=== PATIENT | female | born 1995 | race African-American/Black ===

== ENCOUNTER 2017-06-07 05:23 | Inpatient (IN) | payer OTHER ==
[~2017-06-07] VITALS: Ht 177.8 cm; Wt 109.8 kg
[2017-06-07] MEDS ORDERED: CITRIC ACID/SODIUM CITRATE 30 ML SOLUTION. PO PRN (05:30)
[2017-06-07] MEDS ORDERED: 0.9 % SODIUM CHLORIDE 10 ML DISP.SYRIN. IV PRN (05:30)
[2017-06-07] MEDS ORDERED: TERBUTALINE 1 MG/ML VIAL. SQ PRN (05:30)
[2017-06-07] MEDS ORDERED: BUTORPHANOL 2 MG/ML VIAL. IV PRN ×2 (05:30)
[2017-06-07] MEDS ORDERED: IBUPROFEN 600 MG TABLET. PO PRN (05:30)
[2017-06-07] MEDS ORDERED: LIDOCAINE 1% PF 30 ML VIAL. INJ PRN (05:30)
[2017-06-07] MEDS ORDERED: MAG HYDROX/ALUMINUM HYD/SIMETH 30 ML ORAL.SUSP PO PRN (05:30)
[2017-06-07] MEDS ORDERED: OXYTOCIN 30 UNIT/500 ML PREMIX 500 ML IV PRN ×2 (05:30)
[2017-06-07] MEDS ORDERED: ONDANSETRON PF 4 MG/2 ML VIAL. IV PRN (05:30)
[2017-06-07] MEDS ORDERED: AMPICILLIN SODIUM 2 GM in IV NORMAL SALINE 100ML 100 ML IV ONE (06:00)
[2017-06-07] MEDS: IV RINGERS,LACTATED 1000ML 1,000 ML IV SCH ×4 (06:33→22:43)
[2017-06-07 06:59] LABS: HEMATOCRIT 34.3 % (36.0-47.0); HEMOGLOBIN 11.4 g/dL (12.0-15.5); RED BLOOD COUNT 3.7 x10^6/uL (3.50-5.40); RED CELL DISTRIBUTION WIDTH 13.3 % (11.5-14.5); WHITE BLOOD COUNT 13.5 x10^3/uL (4.0-11.0)
[2017-06-07 07:17] VITALS: BP 119/73
[2017-06-07] MEDS: AMPICILLIN SODIUM 1 GM in IV NORMAL SALINE 50ML 50 ML IV SCH ×3 (09:57→22:43)
[2017-06-07] MEDS ORDERED: fentaNYL PF VIAL 100 MCG/2 ML VIAL IV PRN (15:45)
[2017-06-07] MEDS ORDERED: fentaNYL PF VIAL 100 MCG/2 ML VIAL ONE (15:49)
[2017-06-07] MEDS ORDERED: ROPIVacaine 0.2% IN 0.9%NACL PF 40 MG/20 ML DISP.SYRIN. ONE (18:00)
[2017-06-07] MEDS ORDERED: L&D EPIDURAL CASSETTE 100 ML EP ONE (18:00)
[2017-06-07] MEDS ORDERED: L&D EPIDURAL CASSETTE 100 ML PUMP.RESVR. EP ONE (18:00)
--- NOTE | 2017-06-08 00:13 | PDOC1 ---
OB - History Hx of Present Care: Good Care Ultrasounds: Normal mid trimester US Obstetrical Complications: None Medical Complications: None Past Family/Social History * Past Medical, Surgical, Family and Obstetric Histories reviewed from chart. Rubella: Immune RPR/VDRL: Negative GBS Status: Negative HBsAG: Negative OB - Chief Complaint & HPI Date of Admission: Date of Admission: Jun 07, 2017 at 05:23 Chief Complaint/History : 1 Para: 0 EGA: 39 Reason for admission: induction of labor Indication for induction: maternal discomfort Admission Nurse Assessment Rev: Yes Problems: OB - Admission Exam Physical Exam Vitals: VS - Last 72 Hours, by Label Date Time Temp Pulse Resp B/P (MAP) Pulse Ox O2 Delivery O2 Flow Rate FiO2 06/07/17 15:53 20 06/07/17 07:17 98.9 100 20 119/73 (88) 98.9 HEENT: Normal Heart: Regular Rate Lungs: Clear Abdomen: Gravid, Non tender, Soft Extremities: Edema Reflexes: Normal Cervical Dilatation: 2cm Effacement: 50% Station: -3 Membranes: Intact Heart Rate: Normal Accelerations: Accelerations Present Decelerations: No decelerations Contractions on Admission: None Text A: 39 wks IUP IOL discomforts of P: Admit for pitocin induction. AXEL DURAN Jr, MD Jun 08, 2017 00:13
--- NOTE | 2017-06-08 00:14 | PDOC ---
VAGINAL DELIVERY DATE DATE: 06/08/17 TIME: 00:13 : 1 Para: 1 EGA: 39 VAGINAL DELIVERY: VTX VACCUM ASSISTED: No PLACENTA: Spontaneous 8/9 SEX: Female WEIGHT Weight [3085 gm ] Nuchal Cord: Yes, Times 1 Amniotic Fluid: Clear PAIN: Epidural EPISIOTOMY: No EXTENSION: No EBL 300 ml COMPLICATIONS none CONDITION pt. stable Signs of Intrauterine Infectio: None Shoulder Dystocia: No Problems: AXEL DURAN Jr, MD Jun 08, 2017 00:14
[2017-06-08] MEDS ORDERED: oxyCODONE/APAP 5/325 1 TAB TABLET PO PRN (00:15)
[2017-06-08] MEDS ORDERED: OXYTOCIN 30 UNIT/500 ML PREMIX 500 ML IV PRN (00:15)
[2017-06-08] MEDS ORDERED: PHENYLEPH/MINERAL OIL/PETROLAT RECTAL OINTMENT 28GM TUBE. RC PRN (00:15)
[2017-06-08] MEDS ORDERED: ZOLPIDEM 5 MG TABLET. PO PRN (00:15)
[2017-06-08] MEDS ORDERED: BENZOCAINE 20% TOPICAL AEROSOL SPRAY 57GM CAN. TP PRN (00:15)
[2017-06-08] MEDS ORDERED: MMR per PROTOCOL. MC PRN (00:15)
[2017-06-08] MEDS ORDERED: SIMETHICONE 80 MG TAB.CHEW PO PRN (00:15)
[2017-06-08] MEDS ORDERED: HYDROCORTISONE 1% TOPICAL OINTMENT 30GM TUBE. TP PRN (00:15)
[2017-06-08] MEDS ORDERED: diphenhydrAMINE HCL 25 MG CAPSULE PO PRN (00:15)
[2017-06-08] MEDS ORDERED: MAG HYDROX/ALUMINUM HYD/SIMETH 30 ML ORAL.SUSP PO PRN (00:15)
[2017-06-08] MEDS ORDERED: ACETAMINOPHEN 325 MG TABLET. PO PRN (00:15)
[2017-06-08] MEDS ORDERED: 0.9 % SODIUM CHLORIDE 10 ML DISP.SYRIN. IV PRN (00:15)
[2017-06-08] MEDS ORDERED: MAGNESIUM HYDROXIDE 2,400 MG/30 ML ORAL.SUSP. PO PRN (00:15)
[2017-06-08 02:25] VITALS: BP 103/52
[2017-06-08 03:45] VITALS: BP 95/51
[2017-06-08 07:30] LABS: RPR REFLEX Non Reactive (Non Reactive)
--- NOTE | 2017-06-08 07:53 | PDOC ---
Provider Note Provider Note Doing well VSS uterus NTTP Fu in AM Vital Sign - Last 24 Hours 06/07/17 06/08/17 06/08/17 15:53 02:25 03:45 Temp 98.2 97.9 98.2 97.9 Pulse 94 94 Resp 20 18 18 B/P (MAP) 103/52 (69) 95/51 (66) Pulse Ox 96 96 LEON SALAZAR MD Jun 08, 2017 07:53
[2017-06-08 10:39] VITALS: BP 114/56
[2017-06-08] MEDS: IBUPROFEN 800 MG TABLET. PO PRN ×2 (13:48→21:59)
[2017-06-08] MEDS: DOCUSATE SODIUM 100 MG CAPSULE. PO PRN (13:48)
[2017-06-08 13:50] VITALS: BP 110/56
[2017-06-08 18:01] VITALS: BP 111/58
[2017-06-08 22:00] VITALS: BP 111/69
[2017-06-09] MEDS: DOCUSATE SODIUM 100 MG CAPSULE. PO PRN (01:25)
[2017-06-09 05:07] VITALS: BP 114/66
[2017-06-09 06:26] LABS: BASO # 0.1 x10^3/uL (0.0-0.2); BASO % 1 % (0-3); EOS % 2 % (0-3); HEMOGLOBIN 10.4 g/dL (12.0-15.5); LYMPH # 3.5 x10^3/uL (1.0-4.8); LYMPH % 33 % (24-48); MEAN CORPUSCULAR HEMOGLOBIN 31 pg (25-35); MEAN CORPUSCULAR HGB CONC 34 g/dL (31-37); MEAN CORPUSCULAR VOLUME 93 fL (79-100); MONO % 7 % (0-9); NEUT % 57 % (31-73); PLATELET COUNT 191 x10^3/uL (140-400); RED BLOOD COUNT 3.33 x10^6/uL (3.50-5.40); RED CELL DISTRIBUTION WIDTH 13.5 % (11.5-14.5); WHITE BLOOD COUNT 10.5 x10^3/uL (4.0-11.0)
[2017-06-09] MEDS ORDERED: FERROUS SULFATE 325 MG TABLET. PO SCH (08:00)
[2017-06-09 10:20] VITALS: BP 110/62
[2017-06-09] MEDS: IBUPROFEN 800 MG TABLET. PO PRN (21:31)
[2017-06-09] MEDS ORDERED: DIPHTH,PERTUSS(ACELL),TET TOX 0.5 ML DISP.SYRIN. VAX IM ONE (22:00)
[2017-06-09 23:00] VITALS: BP 123/86
[2017-06-10 06:00] VITALS: BP 131/78
[2017-06-10] MEDS: IBUPROFEN 800 MG TABLET. PO PRN (08:39)
[2017-06-10] MEDS: DOCUSATE SODIUM 100 MG CAPSULE. PO PRN (08:39)
--- NOTE | 2017-06-10 09:10 | PDOC ---
OB Progress Note Date of Service 06/10/17 Time of Evaluation 909 Notes Pt. with no complaints. Lab Laboratory Tests Test 06/09/17 06:16 White Blood Count 10.5 x10^3/uL (4.0-11.0) Red Blood Count 3.33 x10^6/uL (3.50-5.40) Hemoglobin 10.4 g/dL (12.0-15.5) Hematocrit 31.0 % (36.0-47.0) Mean Corpuscular Volume 93 fL (79-100) Mean Corpuscular Hemoglobin 31 pg (25-35) Mean Corpuscular Hemoglobin Concent 34 g/dL (31-37) Red Cell Distribution Width 13.5 % (11.5-14.5) Platelet Count 191 x10^3/uL (140-400) Neutrophils (%) (Auto) 57 % (31-73) Lymphocytes (%) (Auto) 33 % (24-48) Monocytes (%) (Auto) 7 % (0-9) Eosinophils (%) (Auto) 2 % (0-3) Basophils (%) (Auto) 1 % (0-3) Neutrophils # (Auto) 6.0 x10^3uL (1.8-7.7) Lymphocytes # (Auto) 3.5 x10^3/uL (1.0-4.8) Monocytes # (Auto) 0.8 x10^3/uL (0.0-1.1) Eosinophils # (Auto) 0.2 x10^3/uL (0.0-0.7) Basophils # (Auto) 0.1 x10^3/uL (0.0-0.2) Medications Current Medications Sodium Chloride (Normal Saline Flush) 3 ml QSHIFT PRN IV AFTER MEDS AND BLOOD DRAWS; Start 06/07/17 at 05:30 Ringer's Solution 1,000 ml @ 125 mls/hr Q8H IV Last administered on 06/07/17t 22:43; Start 06/07/17 at 05:25; Stop 06/09/17 at 01:34; Status DC Butorphanol Tartrate (Stadol) 1 mg PRN Q1HR PRN IV mild to moderate labor pain ; Start 06/07/17 at 05:30 Butorphanol Tartrate (Stadol) 2 mg PRN Q1HR PRN IV Severe labor pain; Start 10/14 at 05:30 Ondansetron HCl (Zofran) 4 mg PRN Q4HRS PRN IV NAUSEA/VOMITING; Start 06/07/17 at 05:30 Al Hydroxide/Mg Hydroxide (Mylanta Plus Xs) 30 ml PRN Q4HRS PRN PO HEARTBURN / GAS; Start 06/07/17 at 05:30 Citric Acid/ Sodium Citrate (Bicitra) 30 ml 1X PRN PRN PO DYSPEPSIA; Start 10/14 at 05:30; Stop 06/08/17 at 05:29; Status DC Terbutaline Sulfate (Brethine) 0.25 mg 1X PRN PRN SQ SEE COMMENTS; Start at 05:30; Stop 06/08/17 at 05:29; Status DC Lidocaine HCl 30 ml 1X PRN PRN INJ SEE COMMENTS; Start 06/07/17 at 05:30; Stop 06/09/17 at 05:29; Status DC Ampicillin Sodium 2 gm/Sodium Chloride 100 ml @ 200 mls/hr 1X ONCE IV Last administered on 06/07/17 06:34; Start 06/07/17 at 06:00; Stop 06/07/17 at 06:29 ; Status DC Ampicillin Sodium 1 gm/Sodium Chloride 50 ml @ 100 mls/hr Q4H IV Last administered on 06/07/17 22:43; Start 06/07/17 at 10:00; Stop 06/09/17 at 01:34 ; Status DC Oxytocin/Sodium Chloride 500 ml @ 0 mls/hr CONT PRN IV SEE I/O RECORD Last administered on 06/07/17 06:34; Start 06/07/17 at 05:30 Oxytocin/Sodium Chloride 500 ml @ 0 mls/hr CONT PRN PRN IV Post delivery bleeding; Start 06/07/17 at 05:30 Ibuprofen (Motrin) 600 mg PRN Q6HRS PRN PO MODERATE PAIN; Start 06/07/17 at 05: 30 Fentanyl Citrate (Fentanyl 2ml Vial) 100 mcg PRN Q30MIN PRN IV PAIN Last administered on 06/07/17 15:53; Start 06/07/17 at 15:45 Fentanyl Citrate (Fentanyl 2ml Vial) 100 mcg STK-MED ONCE .ROUTE ; Start at 15:49; Stop 06/07/17 at 15:50; Status DC Ropivacaine/ Fentanyl/NS 100 ml @ As Directed STK-MED ONCE EP ; Start 06/07/17 at 18:00; Stop 06/07/17 at 18:01; Status DC Ropivacaine 40 mg STK-MED ONCE .ROUTE ; Start 06/07/17 at 18:00; Stop 06/07/17 at 18:01; Status DC Sodium Chloride (Normal Saline Flush) 10 ml QSHIFT PRN IV AFTER MEDS AND BLOOD DRAWS; Start 06/08/17 at 00:15 Oxytocin/Sodium Chloride 500 ml @ 62.5 mls/hr CONT PRN IV SEE I/O RECORD; Start 06/08/17 at 00:15; Stop 06/08/17 at 08:14; Status DC Acetaminophen (Tylenol) 650 mg PRN Q6HRS PRN PO MILD PAIN / TEMP; Start at 00:15 Ibuprofen (Motrin) 800 mg PRN Q8HRS PRN PO INFLAMMATION/PAIN PREVENTION Last administered on 06/10/17 08:39; Start 06/08/17 at 00:15 Docusate Sodium (Colace) 100 mg PRN BID PRN PO CONSTIPATION Last administered on 06/10/17 08:39; Start 06/08/17 at 00:15 Magnesium Hydroxide (Milk Of Magnesia) 2,400 mg PRN DAILY PRN PO CONSTIPATION; Start 06/08/17 at 00:15 Al Hydroxide/Mg Hydroxide (Mylanta Plus Xs) 30 ml PRN Q4HRS PRN PO HEARTBURN / GAS; Start 06/08/17 at 00:15 Simethicone (Gas-X) 80 mg PRN AFTMEALHC PRN PO GAS / BLOATING; Start 06/08/17 at 00:15 Diphenhydramine HCl (Benadryl) 25 mg PRN Q6HRS PRN PO ITCHING; Start 06/08/17 at 00:15 Benzocaine (Americaine) 1 spray PRN QID PRN TP TOPICAL PAIN; Start 06/08/17 at 00:15 Phenyleph/Shark Oil/Min Oil/Petrol (Preparation H) 1 win PRN QID PRN RC RECTAL PAIN; Start 06/08/17 at 00:15 Hydrocortisone (Cortaid) 1 win PRN QID PRN TP PERINEAL PAIN; Start 06/08/17 at 00:15 Ferrous Sulfate (Feosol) 325 mg BIDWMEALS PO ; Start 06/09/17 at 08:00 Zolpidem Tartrate (Ambien) 5 mg PRN QHS PRN PO INSOMNIA, MAY REPEAT X1; Start 06/08/17 at 00:15 Info (Do NOT chart on this placeholder) 1 ea 1X PRN PRN MC SEE COMMENTS; Start 06/08/17 at 00:15 Info (Do NOT chart on this placeholder) 1 ea 1X PRN PRN MC SEE COMMENTS; Start 06/08/17 at 00:15 Oxycodone/ Acetaminophen (Percocet 5/325) 2 tab PRN Q4HRS PRN PO MODERATE PAIN , SEVERE PAIN Last administered on 06/09/17t 01:25; Start 06/08/17 at 00:15 Ropivacaine/ Fentanyl/NS (Aecxpwqp-Dxnld-IA 3 Mcg-0.1%) 100 ml STK-MED ONCE EP ; Start 06/07/17 at 18:00; Stop 06/08/17 at 08:53; Status DC Ropivacaine 40 mg STK-MED ONCE .ROUTE ; Start 06/07/17 at 18:00; Stop 06/08/17 at 08:53; Status DC Diphtheria/ Tetanus/Acell Pertussis (Boostrix) 0.5 ml ONCE ONCE VAX IM ; Start 06/09/17 at 22:00; Stop 06/09/17 at 22:01; Status DC Exam Abd : soft, non tender, fundus firm Assessment PPD#2 s/p Plan of Care: See new orders (D/c home.) AXEL DURAN Jr, MD Jun 10, 2017 09:10
--- NOTE | 2017-06-10 09:11 | DISCH ---
DISCHARGE INSTRUCTIONS Condition on Discharge Condition on Discharge: Stable Activity After Discharge Activity Instructions for Disc: Activity as tolerated Lifting Instructions after Dis: No heavy lifting Driving Instructions after Dis: Do not drive today Diet after Discharge Diet after Discharge: Regular Contacting the DRNitin after DC Call your doctor for: Concerns you may have Follow-Up Follow up with: Dr. Vaca in 2 weeks. AXEL DURAN Jr, MD Jun 10, 2017 09:11
[2017-06-10 15:05] VITALS: BP 126/63
== END 2017-06-10 15:50 | disposition home or self-care (01) | DRG 775 ==
LOC: 3 SO LND 05:23 → 3 NORTH 06-08 02:42
PROVIDERS: ADMIT Specialist; ATTEND Specialist
PROC: 10E0XZZ Delivery of Products of Conception, External Approach (ICD-10-PCS; principal; 2017-06-08)
PROC: 3E033VJ Introduction of Other Hormone into Peripheral Vein, Percutaneous Approach (ICD-10-PCS; 2017-06-08)
PROC: 3E0S3CZ (ICD-10-PCS; 2017-06-08)
PROC: 00HU33Z Insertion of Infusion Device into Spinal Canal, Percutaneous Approach (ICD-10-PCS; 2017-06-08)
DX: O69.81X0 Labor and delivery complicated by cord around neck, without compression, not applicable or unspecified (principal); Z3A.39 39 weeks gestation of pregnancy; Z37.0 Single live birth; O99.824 Streptococcus B carrier state complicating childbirth
CPT/HCPCS: 36415; 85027; 86593; 86850; 86900; 86901; 90715; C1887; J0290; J2590; J2795; J3010; J7120

== ENCOUNTER 2017-10-31 17:11 | Emergency (ER) | payer OTHER ==
[~2017-10-31] VITALS: Ht 177.8 cm; Wt 104.3 kg
[2017-10-31 17:15] VITALS: BP 140/79
[2017-10-31] MEDS ORDERED: IPRATRPIUM/ALBUTEROL 0.5/2.5MG 3 ML NEBU. NEB ONE (17:30)
[2017-10-31] MEDS ORDERED: predniSONE 20 MG TABLET PO ONE (17:30)
[2017-10-31] MEDS ORDERED: PRED50TA PO (18:01)
[2017-10-31] MEDS ORDERED: PROAIR RESPICL90 MCG IH (18:01)
--- NOTE | 2017-10-31 18:01 | PHYS DOC ---
Past Medical History Past Medical History: Asthma Past Surgical History: No Surgical History Alcohol Use: None Drug Use: None Adult General Chief Complaint Chief Complaint: ASTHMA HPI HPI Patient is a 21 year old female with history of asthma who presents with wheezing and a cough for 2 days. Patient states she does not have an inhaler. Review of Systems Review of Systems Constitutional: Denies fever or chills [] Eyes: Denies change in visual acuity, redness, or eye pain [] HENT: Denies nasal congestion or sore throat [] Respiratory: Cough and wheezing, denies any shortness of breath Cardiovascular: No additional information not addressed in HPI [] GI: Denies abdominal pain, nausea, vomiting, bloody stools or diarrhea [] : Denies dysuria or hematuria [] Musculoskeletal: Denies back pain or joint pain [] Integument: Denies rash or skin lesions [] Neurologic: Denies headache, focal weakness or sensory changes [] All other systems were reviewed and found to be within normal limits, except as documented in this note. Current Medications Current Medications Current Medications Medications (Trade) Dose Ordered Sig/Monica Start Time Stop Time Status Last Admin Dose Admin Albuterol/ Ipratropium (Duoneb) 3 ml 1X ONCE 10/31/17 17:30 10/31/17 17:31 DC 10/31/17 17:42 3 ML Prednisone (Prednisone) 60 mg 1X ONCE 10/31/17 17:30 10/31/17 17:31 DC 10/31/17 17:37 60 MG Allergies Allergies Allergies Coded Allergies Type Severity Reaction Last Updated Verified No Known Drug Allergies 06/07/17 No Physical Exam Physical Exam Constitutional: Well developed, well nourished, no acute distress, non-toxic appearance. [] HENT: Normocephalic, atraumatic, bilateral external ears normal, oropharynx moist, no oral exudates, nose normal. [] Eyes: PERRLA, EOMI, conjunctiva normal, no discharge. [] Neck: Normal range of motion, no tenderness, supple, no stridor. [] Cardiovascular:Heart rate regular rhythm, no murmur [] Lungs & Thorax: Diffuse wheezing throughout the lung bases, patient is actively coughing. Abdomen: Bowel sounds normal, soft, no tenderness, no masses, no pulsatile masses. [] Skin: Warm, dry, no erythema, no rash. [] Back: No tenderness, no CVA tenderness. [] Extremities: No tenderness, no cyanosis, no clubbing, ROM intact, no edema. [] Neurologic: Alert and oriented X 3, normal motor function, normal sensory function, no focal deficits noted. [] Psychologic: Affect normal, judgement normal, mood normal. [] Current Patient Data Vital Signs Vital Signs Date Time Temp Pulse Resp B/P (MAP) Pulse Ox O2 Delivery O2 Flow Rate FiO2 10/31/17 17:46 Room Air 10/31/17 17:15 97.6 80 16 95 97.6 EKG EKG [] Radiology/Procedures Radiology/Procedures [] Course & Med Decision Making Course & Med Decision Making Pertinent Labs and Imaging studies reviewed. (See chart for details) Patient is in the ED with wheezing and a cough that began 2 days ago. She has no inhaler. She was wheezing on arrival to the ED. Given a DuoNeb treatment and started on prednisone. Lungs have cleared up. Discharged with prednisone and albuterol inhaler. Instructed follow up with the PCP in 1-2 weeks. Provided return precautions and discharged in stable condition. Dragon Disclaimer Dragon Disclaimer This electronic medical record was generated, in whole or in part, using a voice recognition dictation system. Departure Departure Impression: Primary Impression: Asthma exacerbation Disposition: HOME, SELF-CARE Condition: STABLE Referrals: VINCENT IRELAND (PCP) follow up with your doctor in one week Patient Instructions: Asthma, Adult, [id number] Additional Instructions: You were seen with asthma exacerbation. Use the breathing treatments as prescribed. Follow-up with your primary care doctor in 1-2 weeks. Come back to the ED at any point symptoms worsen. Scripts Albuterol Sulfate (Proair Respiclick) 90 Mcg Aer.pow.ba 1 PUFF IH PRN Q6HRS Y for SHORTNESS OF BREATH, #1 INHALER 1 Refill Prov: AYESHA WILLIS APRN 10/31/17 Prednisone (PREDNISONE) 50 Mg Tablet 1 TAB PO DAILY, #4 TAB Prov: AYESHA WILLIS APRN 10/31/17 Problem Qualifiers Primary Impression: Asthma exacerbation Asthma severity: mild Asthma persistence: intermittent Qualified Codes: J45.21 - Mild intermittent asthma with (acute) exacerbation AYESHA WILLIS APRN Oct 31, 2017 18:01
== END 2017-10-31 18:18 | disposition home or self-care (01) ==
LOC: ER 17:11
DX: J45.21 Mild intermittent asthma with (acute) exacerbation (principal)
CPT/HCPCS: 99283; J7512; J7620

== ENCOUNTER 2018-05-05 15:58 | Emergency (ER) | payer OTHER ==
[2018-05-05] MEDS: IPRATRPIUM/ALBUTEROL 0.5/2.5MG 3 ML NEBU. NEB (16:47)
[2018-05-05] MEDS: predniSONE 20 MG TABLET PO (17:00)
== END 2018-05-05 17:23 | disposition home or self-care (01) ==
LOC: ER 15:58
DX: J45.901 Unspecified asthma with (acute) exacerbation (principal)
CPT/HCPCS: 94640; 99283-25; J7512; J7620